=== PATIENT | male | born 1975 | race Caucasian/White ===

== ENCOUNTER 2023-10-22 08:47 | Emergency (ER) | payer SELFPAY ==
[~2023-10-22] VITALS: Ht 167.6 cm; Wt 70.5 kg
[2023-10-22 09:07] VITALS: BP 101/64; TEMP 97.8
[2023-10-22] MEDS ORDERED: oxyCODONE/Acetaminophen 5-325 MG TAB PO ONE (10:00)
[2023-10-22] MEDS ORDERED: NAPROSYN500 MG PO (10:30)
[2023-10-22 11:10] VITALS: PULSE 81
== END 2023-10-22 11:10 | disposition home or self-care (01) ==
LOC: COL.ER 08:47
DX: S50.02XA Contusion of left elbow, initial encounter (principal); E11.9 Type 2 diabetes mellitus without complications; Z79.4 Long term (current) use of insulin; Z79.84 Long term (current) use of oral hypoglycemic drugs; W22.8XXA Striking against or struck by other objects, initial encounter; Y92.89 Other specified places as the place of occurrence of the external cause; Y99.0 Civilian activity done for income or pay